=== PATIENT | female | born 1995 | race Hispanic/Latino ===

== ENCOUNTER 2022-01-29 10:10 | Emergency (ER) | payer OTHER ==
[~2022-01-29] VITALS: Ht 160 cm; Wt 56.7 kg
[2022-01-29] MEDS ORDERED: PAXLOVID CO-PA1 EACH PO (10:34)
== END 2022-01-29 12:07 | disposition home or self-care (01) ==
LOC: ER 10:30
DX: R50.9 Fever, unspecified (principal); U07.1 COVID-19
CPT/HCPCS: 71045; 99283; U0002

== ENCOUNTER 2022-05-07 12:55 | Emergency (ER) | payer OTHER ==
[~2022-05-07] VITALS: Ht 160 cm; Wt 59.1 kg
[~2022-05-07 12:55] MED LIST: PAXLOVID CO-PA1 EACH PO
[2022-05-07] MEDS ORDERED: IBUPROFEN400 MG PO (13:21)
[2022-05-07] MEDS ORDERED: KETOROLAC TROMETHAMINE 60 MG/2 ML VIAL IM ONE (13:30)
[2022-05-07] MEDS ORDERED: KETOROLAC TROMETHAMINE 30 MG/ML VIAL ONE (13:34)
== END 2022-05-07 13:27 | disposition home or self-care (01) ==
LOC: FSED 12:58
DX: M54.6 Pain in thoracic spine (principal); S29.012A Strain of muscle and tendon of back wall of thorax, initial encounter; X58.XXXA Exposure to other specified factors, initial encounter
CPT/HCPCS: 96372; 99283; J1885